=== PATIENT | male | born 1960 | race Caucasian/White ===

== ENCOUNTER 2023-12-02 09:54 | Emergency (ER) | payer MEDICARE, OTHER ==
[~2023-12-02] VITALS: Ht 172.7 cm; Wt 86.2 kg
[~2023-12-02 09:54] MED LIST: ASPIR 8181 MG PO; IBUPROFEN600 MG PO; NORCO 5-325 TA1 EACH PO
[2023-12-02 10:25] LABS: BILIRUBIN, URINE NEGATIVE (negative); BLOOD/HGB, URINE NEGATIVE (Negative); KETONE, URINE NEGATIVE (Negative); LEUK ESTERASE, URINE NEGATIVE (negative); NITRITE, URINE NEGATIVE (negative)
[2023-12-02 10:25] LABS: BASOPHILS 0.6 % (0-2); EOSINOPHILS 0.6 % (0-6); HEMATOCRIT 47.7 % (35.0-50.0); HEMOGLOBIN 16.2 g/dL (12.0-18.0); LYMPHOCYTES 9.1 % (24-44); MCH 30.8 (27-36); MCHC 33.9 g/dl (30-36); MONOCYTES 7.6 % (0-12); NEUTROPHILS 82.1 % (39-80); PLATELET COUNT 155 K/uL (140-440); RBC 5.24 M/ul (4.3-5.7); RDW 13.8 (10.5-15.0)
[2023-12-02 10:44] LABS: ALBUMIN 3.5 g/dL (3.4-5.0); ALBUMIN/GLOBULIN RATIO 1.03 (1.1-2.4); ANION GAP 14.2 (7-21); BILIRUBIN, TOTAL 0.7 ng/dL (0.2-1.0); BUN/CREATININE RATIO 10.07 (6.0-28.6); CALCIUM 8.2 mg/dL (8.5-10.1); CREATININE, SERUM 1.29 mg/dL (0.70-1.30); POTASSIUM 4.2 mmol/L (3.5-5.1); PROTEIN, TOTAL 6.9 g/dL (6.4-8.2)
[2023-12-02 14:40] VITALS: BP 149/89
[2023-12-02] MEDS ORDERED: MORPHINE SULFAT15 MG PO (14:52)
[2023-12-02] MEDS ORDERED: ONDANSETRON ODT4 MG PO (14:52)
== END 2023-12-02 14:40 | disposition home or self-care (01) ==
LOC: ED 09:54
PROVIDERS: Emergency Medicine
DX: N13.2 Hydronephrosis with renal and ureteral calculous obstruction (principal); Z87.891 Personal history of nicotine dependence; Z88.0 Allergy status to penicillin; Z88.2 Allergy status to sulfonamides; Z79.82 Long term (current) use of aspirin
CPT/HCPCS: 36415; 74177; 80053; 81003; 85025; 96361; 96375; 99284-25; J1885; J2405; J7030; Q9967

== ENCOUNTER 2025-02-07 06:03 | Day surgery (SDC) | payer MEDICARE ==
[2025-01-31 14:40] VITALS: BP 113/82
[~2025-02-07] VITALS: Ht 172.7 cm; Wt 79.5 kg
[~2025-02-07 06:03] MED LIST changes: +ATORVASTATIN CA40 MG PO; +BACLOFEN PO; +GABAPENTIN300 MG PO; +LACTATED RINGER'S 1,000 ML IV SCH; +MELOXICAM15 MG PO; +MORPHINE SULFAT15 MG PO; +ONDANSETRON ODT4 MG PO; +TAMSULOSIN HCL0.4 MG PO; +VENTOLIN HFA18 GM
[2025-02-07 06:07] VITALS: BP 117/76
[2025-02-07] MEDS ORDERED: IBLOOD GLUCOSE TEST STRIP 1 EA TEST VI PRN (07:00)
[2025-02-07] MEDS ORDERED: LIDOCAINE HCL 1% 5 ML SDV INJ ONE (07:00)
[2025-02-07] MEDS ORDERED: LIDOCAINE HCL 2% 5 ML SDV ONE (07:29)
[2025-02-07] MEDS ORDERED: propofoL 200 MG/20 ML VIAL ONE (07:29)
[2025-02-07 08:18] VITALS: BP 104/65
--- NOTE | 2025-02-07 08:35 | NUR ---
02/07/25 0835 Lulu Arenas 0801 PT ARRIVED IN PACU SLEEPY. ABD SOFT. 0815 PT AWAKE AND WANTING TO GO HOME. AT BEDSIDE. 0825 DC INSTRUCTIONS GIVEN. 0826 LEFT VIA W/C.
--- NOTE | 2025-02-07 14:16 | OR ---
[facility] [address], [place] [address] Signed DATE OF OPERATION: 02/07/2025 SURGEON: Yudy Sheth MD PREOPERATIVE DIAGNOSIS: Positive Cologuard test. POSTOPERATIVE DIAGNOSIS: Small polyp, left colon (excised). PROCEDURE: Total colonoscopy to cecum with cold morcellation polypectomy x1. ANESTHESIA: Intravenous sedation; propofol infusion; Patty Beaulieu CRNA. INDICATION: This 64-year-old white man is a patient of [facility]. He underwent Cologuard testing, which was positive. He has no current symptoms of bleeding, diarrhea, or constipation. He has no family history of colon cancer. He does have a fair amount of ongoing substance use for which tolerance to usual anesthesia would be probable. On that basis, propofol infusional sedation is appropriate. The risk of bleeding, infection, and perforation related to colonoscopy was reviewed with him. He understands and wished to proceed. FINDINGS: The prep was quite excellent. Complete and full intubation of the cecum was accomplished. Throughout the colon, there was only one abnormality, which was a small and relatively subtle polyp of the left colon which was excised with cold morcellation technique. The remaining colon was normal except for internal and external hemorrhoidal changes. DESCRIPTION OF PROCEDURE: The patient was brought to the surgical endoscopy suite and placed in the lateral decubitus position, given intravenous sedation to the point of slurred speech and nystagmus. Full cardiopulmonary monitoring was maintained. Digital rectal examination was normal. An Olympus video colonoscope was passed in the rectum and manipulated throughout the colon ultimately intubating the cecum. Quite remarkable was his prep. The ileocecal Electronically Signed By: YUDY SHETH MD 02/07/25 1416 PATIENT NAME: OLGA FINE OPERATIVE REPORT DATE OF : 58 REPORT #: [id number] PHYSICIAN: YUDY SHETH MD PCP: MARIIA TINSLEY PAC REPORT IS CONFIDENTIAL AND NOT TO BE RELEASED WITHOUT AUTHORIZATION [facility] [address] [place] [id number] Signed valve and appendiceal orifice were normal. The scope was withdrawn from that point and examination throughout carefully undertaken. In the proximal descending colon, there was a small polyp, which was rather subtle on its initial appearance. Narrow-band imaging confirmed its probability as an adenomatous polyp. This was excised with cold morcellation technique completely. The scope was withdrawn further. There were no other abnormalities other than retroflexed view showing internal hemorrhoids. The scope was removed and the patient was taken to the recovery room in good condition. CONCLUDING DIAGNOSIS: Polyp x1. PLAN: Recommend repeat colonoscopy in 7 to 10 years, sooner if symptoms should develop. He will return to the ongoing care of [facility]. MD CHINEDU Paige/TODD /[id number] cc: [facility]. Copies: ~ Electronically Signed By: YUDY SHETH MD 02/07/25 1416 PATIENT NAME: OLGA FINE OPERATIVE REPORT DATE OF : 58 REPORT #: [id number] PHYSICIAN: YUDY SHETH MD PCP: MARIIA TINSLEY PAC REPORT IS CONFIDENTIAL AND NOT TO BE RELEASED WITHOUT AUTHORIZATION
== END 2025-02-07 08:26 | disposition home or self-care (01) ==
LOC: DS 06:03 → OPS 06:03 → DS 10:00
PROVIDERS: ATTEND Surgery
PROC: 0DBG8ZZ Excision of Left Large Intestine, Via Natural or Artificial Opening Endoscopic (ICD-10-PCS; principal; 2025-02-07 07:30)
DX: Z12.11 Encounter for screening for malignant neoplasm of colon (principal); K63.5 Polyp of colon; J44.9 Chronic obstructive pulmonary disease, unspecified; Z72.0 Tobacco use; Z88.0 Allergy status to penicillin; Z88.2 Allergy status to sulfonamides
CPT/HCPCS: 00811; 88305; J2003; J2704; J7121